=== PATIENT | female | born 1960 | race Two or more races ===

== ENCOUNTER 2016-03-12 12:22 | Day surgery (SDC) | payer BC ==
[2016-03-11 15:07] VITALS: BMI 30.3
[~2016-03-12] VITALS: Ht 149.9 cm; Wt 69.4 kg
[2016-03-12] VITALS (17 sets, daily range): BP systolic 157–205; BP diastolic 74–96; PULSE 84–90; RESP 10–18; Ht 149.9 cm; Wt 69.4 kg
[2016-03-12] MEDS: SOD CHLORIDE 0.9% 1,000 ML IV SCH ×2 (04:50→18:10)
[~2016-03-12 12:22] MED LIST: CEFAZOLIN 2 GM/50 ML (PMX) 50 ML IVPB SCH
[2016-03-12 13:38] LABS: BASOPHILS % 0.6 % (0.0-2.0); EOSINOPHILS # 0.1 10^3/ul (0.0-0.5); EOSINOPHILS % 2.1 % (0.0-7.0); HEMATOCRIT 28.9 % (37.0-47.0); HEMOGLOBIN 9.6 g/dl (12.0-16.0); LYMPHOCYTES # 1.5 10^3/ul (0.8-2.9); LYMPHOCYTES % 28.5 % (15.0-51.0); MEAN CORPUSCULAR HEMOGLOBIN 27.5 pg (29.0-33.0); MEAN CORPUSCULAR HGB CONC 33.4 g/dl (32.0-37.0); MEAN CORPUSCULAR VOLUME 82.4 fl (82.0-101.0); MEAN PLATELET VOLUME 9.4 fl (7.4-10.4); MONOCYTE # 0.4 10^3/ul (0.3-0.9); MONOCYTES % 7.9 % (0.0-11.0); NEUTROPHIL # 3.3 10^3/ul (1.6-7.5); NEUTROPHILS % 60.9 % (39.0-77.0); PLATELET COUNT 188 10^3/UL (140-440); RED BLOOD COUNT 3.51 10^6/ul (4.20-5.40); RED CELL DISTRIBUTION WIDTH 14.7 % (11.5-14.5); UNCORRECTED WBC 5.4 10^3/ul (4.8-10.8); WHITE BLOOD COUNT 5.4 10^3/ul (4.8-10.8)
[2016-03-12 13:43] LABS: CONDITION 1; LH ANALYZER COMMENTS 1
--- NOTE | 2016-03-12 13:45 | RADRPT ---
PROCEDURE: XR Chest. CLINICAL INDICATION: Preop. TECHNIQUE: Single frontal chest x-ray. COMPARISON: None available. FINDINGS: The cardiomediastinal silhouette is unremarkable. No pneumothorax, pleural effusion or consolidation is seen. No acute osseous abnormality is noted. Surgical clips are noted overlying left axilla. IMPRESSION: 1. No acute cardiopulmonary abnormality. RPTAT: HH .Favio Dallas MD, Date Time Electronically viewed and signed by .Favio Dallas MD, on 03/12/2016 13:44 .N/
[2016-03-12 13:48] LABS: INR 0.98
[2016-03-12 13:49] LABS: PARTIAL THROMBOPLASTIN TIME 31.5 Sec (25.0-35.0)
[2016-03-12 13:58] LABS: POTASSIUM 4.7 mmol/L (3.5-5.1)
[2016-03-12 14:02] LABS: CALCIUM 9.3 mg/dl (8.4-10.2); CREATININE 2.99 mg/dl (0.44-1.00)
[2016-03-12] MEDS ORDERED: LIDOCAINE 2% (SDV) 5 ML INJ ONE (15:01)
[2016-03-12] MEDS ORDERED: PROPOFOL 20 ML ONE (15:01)
[2016-03-12] MEDS ORDERED: MIDAZOLAM 1 MG/ML 2 ML INJ ONE (15:02)
[2016-03-12] MEDS ORDERED: FENTAnyl 50 MCG/ML VIAL ONE (15:02)
[2016-03-12] MEDS ORDERED: SYN112 PO (16:01)
[2016-03-12] MEDS ORDERED: LORA10TA3 PO (16:01)
[2016-03-12] MEDS ORDERED: OXYC-431 PO (16:01)
[2016-03-12] MEDS ORDERED: ALLO100T PO (16:01)
[2016-03-12] MEDS ORDERED: GABA-526 PO (16:01)
[2016-03-12] MEDS ORDERED: FLUO40CA63 PO (16:01)
[2016-03-12] MEDS ORDERED: FER325 PO (16:01)
[2016-03-12] MEDS ORDERED: ASPI81TA3 PO (16:01)
[2016-03-12] MEDS ORDERED: VIT B6 PO (16:01)
[2016-03-12] MEDS ORDERED: OMEP20CA16 PO (16:01)
[2016-03-12] MEDS ORDERED: METO-429 PO (16:01)
[2016-03-12] MEDS ORDERED: CEFAZOLIN 1 GM INJ ONE (16:14)
[2016-03-12] MEDS ORDERED: ONDANSETRON 4 MG INJ ONE (16:16)
[2016-03-12] MEDS ORDERED: DEXAMETHASONE 4 MG/ML 1 ML INJ ONE (16:17)
[2016-03-12] MEDS ORDERED: FAMOTIDINE 20 MG INJ ONE (16:17)
[2016-03-12] MEDS ORDERED: METOCLOPRAMIDE 10 MG INJ ONE (16:17)
[2016-03-12] MEDS ORDERED: METOPROLOL 5 MG INJ ONE (16:21)
[2016-03-12] MEDS ORDERED: KETAMINE 500 MG INJ ONE (16:38)
[2016-03-12] MEDS ORDERED: MAGNESIUM SULFATE 1 GM/D5W 100 ML ONE (16:40)
[2016-03-12] MEDS ORDERED: HYDROmorphONE 2 MG/ML SYG ONE (16:58)
[2016-03-12] MEDS ORDERED: ONDANSETRON 4 MG INJ IV PRN ×2 (17:00→17:30)
[2016-03-12] MEDS ORDERED: TRIMETHOBENZAMIDE 100 MG/ML VIAL IM PRN (17:00)
[2016-03-12] MEDS ORDERED: DIPHENHYDRAMINE 50 MG INJ IV PRN (17:00)
[2016-03-12] MEDS ORDERED: INSULIN ASPART [NOVOLOG] 3 ML PEN SC ONE (17:00)
[2016-03-12] MEDS ORDERED: MEPERIDINE 25 MG INJ IV PRN (17:00)
[2016-03-12] MEDS ORDERED: FENTAnyl 50 MCG/ML VIAL IV PRN (17:00)
[2016-03-12] MEDS ORDERED: EPHEDrine SULFATE 50 MG/5 ML SYG IV PRN (17:00)
[2016-03-12] MEDS ORDERED: HYDROmorphONE (0.2 MG/ML) 10ML SYG IV PRN ×2 (17:00)
[2016-03-12] MEDS ORDERED: PROCHLORPERAZINE 10 MG INJ IV PRN (17:00)
[2016-03-12] MEDS ORDERED: hydrALAzine 20 MG INJ IV PRN (17:00)
[2016-03-12] MEDS ORDERED: LABETALOL HCL 20MG INJ IV PRN (17:00)
[2016-03-12] MEDS ORDERED: OXYCODONE/ACETAMINOPHEN (5/325) TAB PO PRN ×2 (17:00)
[2016-03-12] MEDS ORDERED: EPHEDrine SULFATE 50 MG/5 ML SYG ONE (17:09)
--- NOTE | 2016-03-12 17:25 | OPR ---
DATE OF OPERATION: 03/12/2016 PREOPERATIVE DIAGNOSIS: Recurrent left breast cancer. POSTOPERATIVE DIAGNOSIS: Recurrent left breast cancer. OPERATION PERFORMED: Left completion mastectomy with resection of axillary mass and axillary dissec tion. Resection of portion of left chest wall tissue. ANESTHESIA: General. ANESTHESIOLOGIST: Pauly James MD SURGEON: Rodger Low MD CHARCOAL UNLOADER: Jose R Melgar MD INDICATIONS FOR PROCEDURE: The patient is an unfortunate 55-year-old female who was treated by anot her surgeon approximately 14 to 15 months ago for a left breast cancer. At that time, she had a lef t mastectomy with immediate reconstruction and removal of some sentinel nodes. The nodes were negat [place]. She did well until she presented with a mass which appeared to be high in the axillary tail of the left breast for additional masses noted within the axilla. Clinically, this appeared to be con sistent with either a prime axillary recurrence or a recurrent secondary to the residual tissue in t he tail of the left breast. The patient was counseled as to the need for completion mastectomy and axillary dissection with resection of the axillary mass. She consented and was scheduled for surger y. DESCRIPTION OF PROCEDURE: The patient was brought to the operating theater, placed under general an esthesia. The left breast and axillary region was prepped and draped in usual sterile fashion. Mai roximately 5 cm incision was made directly over the large palpable mass which was very low in the ax illa. Subcutaneous tissue was dissected with cautery. Dissection continued anteriorly until the pe ctoralis major muscle was identified. This mass appeared to be adherent to the pectoralis major mus thierry and portion of residual breast tissue. With meticulous dissection using a combination of cauter y and blunt dissection, the mass was dissected off of the left chest wall. This required resection of portion of left chest wall tissue. Dissection continued until the axillary vein was identified. It was dissected from medial to lateral. Significant lymphovascular structures were controlled wit h the LigaSure device. Posterolaterally the latissimus dorsi muscle was identified throughout its c ourse. The large mass and additional axillary lymph nodes were then meticulously resected using Lig aSure device. They were removed and sent for pathologic analysis. There appeared to be some suspic ious tissue remaining adherent to the left chest wall and this tissue was resected separately and se nt separately for pathologic analysis. The wound was then irrigated. Minimal bleeding was controll ed with cautery. A #10 flat Stephan-Flores drain was then brought through the left mid axillary line , cut to size and laid within the axilla. It was then secured in place with a 2-0 nylon suture, and the skin was then reapproximated with a 4-0 Vicryl suture in subcuticular fashion. Benzoin and Jiim ri-Strips were then applied. The patient tolerated procedure well. Estimated blood loss was 30 mL. There were no complications and the patient was transported in stable condition to the recovery ro . Dictated By: RODGER MORGAN/KIMBERLY Conf#: [id number] DID#: [id number]
[2016-03-12] MEDS ORDERED: ACETAMINOPHEN 1000MG/100ML IV 100 ML IVPB PRN (17:30)
[2016-03-12] MEDS: morphine 2 MG INJ IV PRN (19:50)
[2016-03-12] MEDS ORDERED: GLUCOSE GEL 15 GRAM TUBE PO PRN ×2 (20:30)
[2016-03-12] MEDS ORDERED: GLUCAGON 1 MG INJ IM PRN (20:30)
[2016-03-12] MEDS ORDERED: GLUCOSE GEL 15 GRAM TUBE BUCCAL PRN (20:30)
[2016-03-12] MEDS ORDERED: DEXTROSE 50% 50 ML SYRINGE IV PRN ×2 (20:30)
[2016-03-12] MEDS: INSULIN ASPART [NOVOLOG] 3 ML PEN SC SCH (21:00)
[2016-03-12] MEDS: FERROUS SULFATE (EC) 325 MG TAB PO SCH (21:01)
[2016-03-12] MEDS: D5W-0.45 NACL + KCL 20 MEQ 1,000 ML IV SCH (21:11)
[2016-03-13 00:59] VITALS: BP 143/80; RESP 16
[2016-03-13] MEDS ORDERED: ACCUCHECK XX SCH (02:00)
[2016-03-13] MEDS: morphine 2 MG INJ IV PRN ×4 (02:07→16:27)
[2016-03-13] MEDS: D5W-0.45 NACL + KCL 20 MEQ 1,000 ML IV SCH ×2 (05:24→08:09)
[2016-03-13 05:28] VITALS: BP 144/71; PULSE 86
[2016-03-13] MEDS ORDERED: PANTOPRAZOLE (EC) 40 MG TAB PO SCH (06:00)
[2016-03-13] MEDS ORDERED: LEVOTHYROXINE 112 MCG TAB PO SCH (07:00)
[2016-03-13] MEDS: SOD CHLORIDE 0.9% 1,000 ML IV SCH (07:30)
[2016-03-13 07:34] VITALS: BP 177/77; RESP 16
[2016-03-13] MEDS: INSULIN ASPART [NOVOLOG] 3 ML PEN SC SCH ×2 (07:45→12:15)
[2016-03-13] MEDS: FERROUS SULFATE (EC) 325 MG TAB PO SCH ×2 (08:12→12:34)
[2016-03-13] MEDS ORDERED: ASPIRIN 81 MG TAB PO SCH (09:00)
[2016-03-13] MEDS ORDERED: METOPROLOL 50 MG TAB PO SCH (09:00)
[2016-03-13] MEDS ORDERED: ALLOPURINOL 100 MG TAB PO SCH (09:00)
[2016-03-13] MEDS ORDERED: LORATADINE 10 MG TAB PO SCH (09:00)
[2016-03-13] MEDS ORDERED: FLUOXETINE 20 MG CAP PO SCH (09:00)
[2016-03-13] MEDS ORDERED: PYRIDOXINE 50 MG TAB PO SCH (09:00)
[2016-03-13] MEDS ORDERED: GABAPENTIN 300 MG CAP PO SCH (09:00)
--- NOTE | 2016-03-13 12:16 | RADRPT ---
Vent Rate: 80 bpm RR Interval: 0 msec [place] Interval: 242 msec QRS Duration: 84 msec QT Interval: 380 msec QTC Interval: 438 msec P-R-T [place]: 55 - 3 - 51 degrees Sinus rhythm with 1st degree AV block Possible Anterior infarct , age undetermined Abnormal ECG Electronically Signed By: Jatinder Lockwood [id number]
[2016-03-13 12:38] VITALS: BP 139/64
--- NOTE | 2016-03-13 14:35 | HP ---
Date/Time of Note Date/Time of Note DATE: 03/13/16 TIME: 14:33 Assessment/Plan VTE Prophylaxis VTE Prophylaxis Intervention: other Lines/Catheters IV C[facility]ter Type [facility]from [facility] Saline Lock Urinary Cath still in place: No Assessment/Plan Chief Complaint/Hosp Course 1) breast cancer - mastectomy 2) diabetes - monitor blood sugar 3) renal insufficiency - stable for now Patient is stable for discharge Problems: HPI/ROS Admit Date/Time Admit Date/Time Patient with diabetes, hypertension, renal insufficiency comes in for mastectomy of breast cancer. Patient had procedure and tolerated well. She is stable for discharge per surgery. PMH/Family/Social Past Medical History renal insufficiency Medical History: diabetes, high cholesterol, hypertension Social History Smoking Status: Never smoker Exam/Review of Systems Vital Signs Vitals Vital Signs Date Time Temp Pulse Resp B/P Pulse Ox O2 Delivery O2 Flow Rate FiO2 03/13/16 12:38 139/64 03/13/16 07:34 97.9 71 16 99 03/12/16 18:41 Room Air Intake and Output 03/12/16 03/12/16 03/13/16 15:00 23:00 07:00 Intake Total 500 ml 1400 ml Output Total 75 ml 20 ml Balance 425 ml 1380 ml Exam Constitutional: well developed Head: atraumatic, normocephalic Neck: supple Respiratory: clear to auscultation Cardiovascular: regular rate and rhythm Gastrointestinal: non-tender, soft Extremities: normal pulses Labs Result Diagram: 03/12/16 1310 03/12/16 1310 Medications Medications Current Medications Sodium Chloride (NS) 1,000 ml @ 75 mls/hr [id number] IV ; Start 03/11/16 at 15:30 Ondansetron HCl 4 mg 4 mg Q6H PRN IV NAUSEA AND/OR VOMITING Last administered on 03/12/16 21:01; Admin Dose 4 MG; Start 03/12/16 at 17:30 Potassium Chloride/Dextrose/ Sod Cl (D5-1/2ns + KCl 20 Meq) 1,000 ml @ 125 mls/ hr Q8H IV Last administered on 03/13/16 05:24; Admin Dose 125 MLS/HR; Start 03/12/16 at 17:01 Morphine Sulfate 2 mg 2 mg Q1H PRN IV PAIN Last administered on 03/13/16 12:46 ; Admin Dose 2 MG; Start 03/12/16 at 17:30 Acetaminophen (Ofirmev 1000mg/ 100ml Iv) 100 ml @ 400 mls/hr Q6H PRN IVPB PAIN ; Start 03/12/16 at 17:30 Allopurinol (Zyloprim) 100 mg DAILY PO Last administered on 03/13/16 08:12; Admin Dose 100 MG; Start 03/13/16 at 09:00 Aspirin (Aspirin) 81 mg DAILY PO Last administered on 03/13/16 08:11; Admin Dose 81 MG; Start 03/13/16 at 09:00 Ferrous Sulfate (Ferrous Sulfate (Ec)) 325 mg TID PO Last administered on 12:34; Admin Dose 325 MG; Start 03/12/16 at 21:00 Fluoxetine HCl (Prozac) 40 mg DAILY PO Last administered on 03/13/16 08:13; Admin Dose 40 MG; Start 03/13/16 at 09:00 Gabapentin (Neurontin) 600 mg DAILY PO Last administered on 03/13/16 08:12; Admin Dose 600 MG; Start 03/13/16 at 09:00 Loratadine (Claritin) 10 mg DAILY PO Last administered on 03/13/16 08:12; Admin Dose 10 MG; Start 03/13/16 at 09:00 Metoprolol Tartrate (Lopressor) 50 mg DAILY PO Last administered on 03/13/16 08 :12; Admin Dose 50 MG; Start 03/13/16 at 09:00 Pantoprazole (Protonix Tab) 40 mg DAILY@06 PO Last administered on 03/13/16 05: 23; Admin Dose 40 MG; Start 03/13/16 at 06:00 Pyridoxine HCl (Vitamin B6) 50 mg DAILY PO Last administered on 03/13/16 08:12 ; Admin Dose 50 MG; Start 03/13/16 at 09:00 Diagnostic Test (Pha) (Accucheck) 1 ea 02 XX ; Start 03/13/16 at 02:00 Miscellaneous Information 1 ea NOTE XX ; Start 03/12/16 at 20:30 Glucose (Glutose) 15 gm Q15M PRN PO DECREASED GLUCOSE; Start 03/12/16 at 20:30 Glucose (Glutose) 22.5 gm Q15M PRN PO DECREASED GLUCOSE; Start 03/12/16 at 20:30 Dextrose (D50w Syringe) 25 ml Q15M PRN IV DECREASED GLUCOSE; Start 03/12/16 at 20:30 Dextrose (D50w Syringe) 50 ml Q15M PRN IV DECREASED GLUCOSE; Start 03/12/16 at 20:30 Glucagon (Glucagen) 1 mg Q15M PRN IM DECREASED GLUCOSE; Start 03/12/16 at 20:30 Glucose (Glutose) 15 gm Q15M PRN BUCCAL DECREASED GLUCOSE; Start 03/12/16 at 20: 30 Clonidine (Catapres) 0.1 mg Q6H PRN PO HTN Last administered on 03/13/16t 11:20 ; Admin Dose 0.1 MG; Start 03/13/16 at 11:30 DEEPTHI LAU Mar 13, 2016 14:35
--- NOTE | 2016-03-13 14:37 | DS ---
Date/Time of Note Date/Time of Note DATE: 03/13/16 TIME: 14:35 Discharge Summary Admission/Discharge Info Admit Date/Time 03/12/16 Discharge Date/Time 03/13/16 Final Diagnosis 1) breast cancer 2) diabetes 3) renal insufficiency Patient Condition: Fair Hospital Course Patient with diabetes mellitus, hypertension, hypercholesterolemia comes in for mastectomy for treatment of breast cancer. Patient tolerated the procedure and once cleared by surgery she was sent home. 1) breast cancer - mastectomy 2) diabetes - monitor blood sugar 3) renal insufficiency - stable for now Patient is stable for discharge Home Meds Reported Medications Oxycodone HCl/Acetaminophen (Oxycodone-Acetaminophen 10-325) 1 Each Tablet, 1 EACH PO Y for PAIN, TAB 03/12/16 Omeprazole* (Omeprazole*) 20 Mg Capsule.dr, 20 MG PO DAILY, #30 CAP 03/12/16 Gabapentin* (Gabapentin*) 600 Mg Tablet, 600 MG PO DAILY, #60 TAB 03/12/16 Fluoxetine Hcl* (Fluoxetine Hcl*) 40 Mg Capsule, 40 MG PO DAILY, CAP 03/12/16 Metoprolol Tartrate* (Lopressor*) 50 Mg Tab, 50 MG PO DAILY, #60 TAB 03/12/16 Aspirin* (Aspirin* Chew) 81 Mg Tab.chew, 81 MG PO DAILY, TAB.CHEW 03/12/16 Loratadine* (Loratadine*) 10 Mg Tablet, 10 MG PO DAILY, #30 TAB 03/12/16 Levothyroxine Sodium* (Levothyroxine Sodium*) 112 Mcg Tablet, 112 MCG PO BEFORE BREAKFAST, #30 TAB 03/12/16 Ferrous Sulfate* (Ferrous Sulfate*) 325 Mg Tabec, 325 MG PO TID, TAB 03/12/16 [Vit B6] No Conflict Check, 1 TAB PO DAILY 03/12/16 Allopurinol* (Allopurinol*) 100 Mg Tablet, 1 TAB PO DAILY, #30 03/12/16 Pending Labs Laboratory Tests Test 03/12/16 18:21 03/12/16 21:00 03/13/16 07:41 03/13/16 12:03 Bedside Glucose 112mg/dL (70-220) 159mg/dL (70-220) 135mg/dL (70-220) 107mg/dL (70-220) DEEPTHI LAU Mar 13, 2016 14:36
[2016-03-13] MEDS ORDERED: HYDR-906 PO (14:39)
== END 2016-03-13 16:55 | disposition home or self-care (01) ==
LOC: SDS 12:22 → MS2 18:55 → SDS 03-13 16:55
PROVIDERS: ATTEND Surgery Surgical Oncology
DX: C50.912 Malignant neoplasm of unspecified site of left female breast (principal); C77.3 Secondary and unspecified malignant neoplasm of axilla and upper limb lymph nodes; I12.0 Hypertensive chronic kidney disease with stage 5 chronic kidney disease or end stage renal disease; N18.5 Chronic kidney disease, stage 5; E03.9 Hypothyroidism, unspecified; E11.9 Type 2 diabetes mellitus without complications
CPT/HCPCS: 19303; 71010; 80048; 82962; 85025; 85610; 85730; 88305; 93005; J0360; J0690; J1100; J1170; J2250; J2270; J2405; J2765; J3010; J3475; J3480; J7030; Z7512; Z7610; J1815